=== PATIENT | male | born 1940 | race Two or more races ===

== ENCOUNTER 2018-07-08 11:30 | Outpatient (CLI) | payer OTHER | END 2018-07-08 11:42 | disposition home or self-care (01) | LOC: RAD 501 11:30 | DX: J44.1 Chronic obstructive pulmonary disease with (acute) exacerbation (principal) ==

== ENCOUNTER → 2018-07-23 | Outpatient (CLI) | payer OTHER | END | disposition home or self-care (01) | LOC: NUCLEAR 10:44 | DX: I25.10 Atherosclerotic heart disease of native coronary artery without angina pectoris (principal); E11.22 Type 2 diabetes mellitus with diabetic chronic kidney disease | CPT/HCPCS: 78452; A9500 ==

== ENCOUNTER 2018-10-14 11:32 | Emergency (ER) | payer OTHER ==
[~2018-10-14] VITALS: Ht 160 cm; Wt 94.3 kg
[2018-10-14] MEDS ORDERED: GEMFIBROZIL600 MG (11:49)
[2018-10-14] MEDS ORDERED: LYRICA50 MG (11:51)
[2018-10-14] MEDS ORDERED: METOPROLOL ER-1 EACH (11:51)
[2018-10-14] MEDS ORDERED: JANUVIA50 MG (11:51)
[2018-10-14] MEDS ORDERED: ZETIA10 MG (11:52)
[2018-10-14] MEDS ORDERED: AMLODIPINE BESY10 MG (11:53)
[2018-10-14] MEDS ORDERED: SYNTHROID100 MCG (11:55)
[2018-10-14] MEDS ORDERED: CORRECTOL5 MG (11:56)
[2018-10-14] MEDS ORDERED: PLAVIX75 MG (11:57)
[2018-10-14] MEDS ORDERED: ISOSORBIDE DINI30 MG (11:57)
[2018-10-14] MEDS ORDERED: ENALAPRIL MALEAT5 MG (11:58)
[2018-10-14] MEDS ORDERED: FUROSEMIDE20 MG (11:58)
[2018-10-14] MEDS ORDERED: HUMULIN 70100 UNIT/1 (11:59)
== END 2018-10-14 18:26 | disposition home or self-care (01) ==
LOC: ER 11:32
DX: N45.3 Epididymo-orchitis (principal); N43.2 Other hydrocele; K59.09 Other constipation